=== PATIENT | female | born 1955 | race Caucasian/White ===

== ENCOUNTER 2021-08-20 11:38 | Day surgery (SDC) | payer MEDICARE, OTHER, SELFPAY ==
--- NOTE | 2021-08-19 19:08 | PM.PREOP ---
Pre-operative Note COVID-19 COVID-19 status: Negative Criteria for continued procedure: Expected advancement of disease process, Possibility delay results in more complex future surgery or treatment, Increased loss of function, Delay expected to result in less-positive ultimate med/surg outcome and Non-surgical alternatives not available or appropriate per current SOC Interval Note History & Physical reviewed/Exam performed by Physician: Yes Changes to H&P: No
[2021-08-20] VITALS (9 sets, daily range): BP systolic 122–150; BP diastolic 56–79; PULSE 64–100; RESP 14–18; TEMP 36–37.1; O2SAT 97–100; BMI 28.9
--- NOTE | 2021-08-20 08:17 | PM.OP.1 ---
Operative Date/Time/Diagnoses Date of procedure: 08/20/21 Time of procedure: 13:15 Procedure & Clinicians Procedure: Preoperative diagnoses: 1. Right significant nuclear sclerotic and cortical cataract. 2. Aortic valve replacement with first-degree heart block 3. Asthma 4. Anxiety 5. Vasovagal reaction in preoperative area, recovered quickly Postoperative diagnoses: 1. Cataract removed by phacoemulsification with placement of posterior chamber intraocular lens. Procedure: Phacoemulsification with posterior chamber intraocular lens implant Surgeon: Tasha Reyes MD Complications: None Specimen: None Implant: [id number]+17.0 activity toric lens axis 60 Blood loss: None Anesthesia: Laryngeal mask airway with monitored standby Description of procedure: Patient presents with a complaint of decreased vision due to cataract which is affecting activities of daily living with problems with night driving. The patient wants surgery to improve vision. This is her only seeing eye and she wants her astigmatism as well as larger range of vision correction. The patient understands the extra risk of surgery during the COVID-19 epidemic and wishes to proceed. She has tested negative for active virus within 72 hours of the procedure. The patient was taken to the operating room and given IV sedation. A retrobulbar block consisting of 6 cc of 2% xylocaine without epinephrine mixed half and half with 0.5% Marcaine with 1 cc of hyaluronidase added is placed between the medial and lateral 1/3 of the inferior orbital rim. The eye is manually massaged for 30 sec, prepped using Betadine solution, and draped in the usual sterile fashion. Temporal approach was made, a 1 mm side-port incision was made 90? from the proposed clear corneal incision position. Phenylephrine 1.5% mixed with 1% xylocaine 0.2 cc was placed into the anterior chamber .Endocoat followed by Healon was then placed. A 2.6 mm clear incision with a 2.6 mm blade was placed. A 360 degree capsulorrhexis style capsulotomy was then performed with a cystitome needle on a Healon. Hydrodelineation and hydrodissection were performed. The phacoemulsification unit is introduced, and sculpting notice used to groove the central lens. It is then removed in chopping mode. Epi nucleus is removed with epinuclear mode and irrigation aspiration was used to remove the peripheral cortex. The posterior capsule is polished. The intraocular lens is selected, inspected, power confirmed, and placed in the posterior chamber at the 60 degree axis The wound was stromally hydrated and tested for leaks, there was none and it was left sutureless. Intracameral moxifloxacin 0.1 cc was placed into the anterior chamber. Kenalog 0.2 cc was placed in the superior subconjunctival space. A drop of antibiotic and was placed and a protective contact lens placed and the eye shielded shielded. The patient was stable and returned to the recovery room in excellent condition. Dictated by: Tasha Reyes MD Copy to: [facility] Same procedure as scheduled: Yes
[2021-08-20] MEDS: PROPARACAINE 0.5% OPHTH SOL 2 DROPS EYE-OP (11:52)
[2021-08-20] MEDS: CATARACT EYE COMPOUND (10 DROPS/SYRINGE) 3 DROPS EYE-OP (11:53)
--- NOTE | 2021-08-20 11:57 | SUR.OPER ---
Supine on eye stretcher, head on extension cradle secured with tape. Arms tucked at sides with blanket. Pillow under knees.
[2021-08-20] MEDS: LACTATED RINGERS 1,000 ML 42 ML IV (12:45)
[2021-08-20] MEDS: MOXIFLOXACIN INJ 4 MG/0.8 ML VIAL 0.5 MG EYE-OP (13:23)
[2021-08-20] MEDS: HYALURONATE SODIUM 30 MG-10 MG/ML SYRINGES 1 BOX INTRAOCULA (13:23)
[2021-08-20] MEDS: PHENYLEPHRINE/LIDOCAINE VIAL (OR) 0.2 ML EYE-OP (13:24)
[2021-08-20] MEDS: TRIAMCINOLONE 50 MG/5 ML VIAL INJ (13:24)
[2021-08-20] MEDS: BALANCED SALT IRRIG SOLN NO.2 500 ML, EPINEPHrine 1 MG IRR (13:25)
== END 2021-08-20 14:45 | disposition home or self-care (01) ==
LOC: OR 11:40
PROVIDERS: Family Provider Family Medicine; PCP Family Medicine; Referring Provider Ophthalmology; Visit Provider Ophthalmology
PROC: (CPT 66984; principal; 2021-08-20 13:15)
DX: H25.811 Combined forms of age-related cataract, right eye (principal); R55 Syncope and collapse; J45.909 Unspecified asthma, uncomplicated; F41.9 Anxiety disorder, unspecified
CPT/HCPCS: 66984; J0171; J2250; J2704; J3301; V2788

== ENCOUNTER → 2023-08-20 11:06 | Outpatient (CLI) | payer MEDICARE, OTHER, SELFPAY | PROVIDERS: Family Provider Family Medicine; Referring Provider Specialist; Visit Provider Specialist | DX: R05.3 Chronic cough (principal); J98.8 Other specified respiratory disorders | CPT/HCPCS: 94010; 94726; 94729 ==

== ENCOUNTER → 2023-11-01 13:45 | Outpatient (CLI) | payer MEDICARE, OTHER, SELFPAY ==
[2023-11-01 14:32] LABS: Influenza A - CEPHEID Flu A NEGATIVE (NEGATIVE); Influenza B - CEPHEID Flu B NEGATIVE (NEGATIVE); Respiratory Syncytial Virus Negative (Negative)
[2023-11-01 14:34] LABS: COVID-19 CEPHEID 4-PLEX PCR Negative (Negative)
== END ==
PROVIDERS: Family Provider Family Medicine; Visit Provider Physician Assistant
DX: R05.9 Cough, unspecified (principal)
CPT/HCPCS: 0241U